=== PATIENT | male | born 1985 | race Caucasian/White ===

== ENCOUNTER 2021-03-30 13:17 | Emergency (ER) | payer OTHER ==
[~2021-03-30] VITALS: Ht 175.3 cm; Wt 95.3 kg
[2021-03-30] MEDS ORDERED: FISH OIL 1,0001 EAC9 PO (13:28)
[2021-03-30] MEDS ORDERED: PRILOSEC OTC20 MG PO (13:28)
[2021-03-30] MEDS ORDERED: SUPER THERAVIT1 EACH PO (13:28)
[2021-03-30 13:59] LABS: ABSOLUTE BASOPHILS 0.1 thou/uL (0.0-0.2); ABSOLUTE EOSINOPHILS 0.3 thou/uL (0.0-0.7); ABSOLUTE MONOCYTES 0.6 thou/uL (0.0-1.2); ABSOLUTE NEUTROPHILS 4.8 thou/uL (1.6-8.1); BASOPHILS 0.9 %; EOSINOPHILS 4.3 %; HEMATOCRIT 47.2 % (42.0-52.0); HEMOGLOBIN 15.8 gm/dL (14.0-18.0); MCH 29.6 pg (26.0-34.0); MCHC 33.5 g/dL (28.0-37.0); MCV 88.4 fL (80.0-100.0); MONOCYTES 8.1 %; MPV 8.3 fl. (7.2-11.1); NUCLEATED RBCS 0 /100WBC; PLATELET COUNT* 256 thou/uL (150-400); POLYS 61.7 %; RBC 5.35 mil/uL (4.50-6.00); RDW-CV 12.8 % (10.5-14.5); WBC 7.9 thou/uL (4.0-11.0)
[2021-03-30 14:07] LABS: CALCIUM 8.9 mg/dL (8.5-10.1); POTASSIUM 3.9 mmol/L (3.5-5.1)
[2021-03-30 14:22] LABS: ALBUMIN 4.2 g/dL (3.4-5.0); CK-MB MASS 1.4 ng/mL (<0.5-3.6); MAGNESIUM 2.1 mg/dL (1.8-2.4); TOTAL BILIRUBIN 0.4 mg/dL (<0.1-1.0); TOTAL PROTEIN 7.9 g/dL (6.4-8.2)
[2021-03-30 14:50] VITALS: BP 122/79
--- NOTE | 2021-03-30 17:11 | EKG ---
[place] [address] ELECTROCARDIOGRAM REPORT Name: KASSIDY BHATTI Room: [facility]#: [id number] Admission: 03/30/21 Attend Phys: Discharge: 03/30/21 Date of : 87 Date of Service: 03/30/21 1320 Report #: [id number] THIS REPORT FOR: //name// [facility] ED Test Date: 2021-03-30 Test Time: 13:20:51 Pat Name: KASSIDY BHATTI Department: Room: Gender: Train Engineer: SHON : 1985 Requested By: Laron Seay Order Number: [id number] MD: Arnaldo Herrera Measurements Intervals [place] Rate: 106 P: 34 CT: 142 QRS: -36 QRSD: 91 T: 41 QT: 321 QTc: 427 Interpretive Statements Sinus tachycardia Probable left atrial enlargement Left axis deviation RSR' in V1 or V2, probably normal variant ST elev, probable normal early repol pattern Baseline wander in lead(s) II,III,aVF No previous ECG available for comparison Electronically Signed On 03-30-2021 17:11:23 CDT by Arnaldo Herrera [email or web address] <ELECTRONICALLY SIGNED> By: Arnaldo Herrera MD, [facility] 03/30/21 1711 1320 1320 Arnaldo Herrera MD, [facility] /EPI
== END 2021-03-30 14:57 | disposition home or self-care (01) ==
LOC: M.ERS 13:17
PROVIDERS: Family Medicine
DX: R07.89 Other chest pain (principal); Z79.899 Other long term (current) drug therapy; Z88.2 Allergy status to sulfonamides